=== PATIENT | male | born 2000 | race Caucasian/White ===

== ENCOUNTER → 2021-06-03 13:31 | Outpatient (BNVA) | payer OTHER, SELFPAY | PROVIDERS: Visit Provider Nurse Practitioner Family | DX: Z20.822 Contact with and (suspected) exposure to COVID-19 (principal) | CPT/HCPCS: 87635 ==

== ENCOUNTER 2022-09-03 20:45 | Emergency (ER) | payer OTHER, SELFPAY ==
--- NOTE | 2022-09-03 20:46 | XRR_ITS ---
PROCEDURE INFORMATION: Exam: XR Chest Exam date and time: 09/03/2022 8:54 PM Age: 22 years old Clinical indication: Shortness of breath; Patient HX: PT C/O SOB and is covid positive; Additional info: Thanks TECHNIQUE: Imaging protocol: Radiologic exam of the chest. Views: 1 view. COMPARISON: No relevant prior studies available. FINDINGS: Lungs: Lungs are clear bilaterally. Pleural spaces: No pleural effusion. No pneumothorax. Heart/Mediastinum: The cardiac silhouette and mediastinal contours are unremarkable. Bones/joints: Unremarkable for age. XR/XR chest 1V portable [id number] IMPRESSION: Negative chest radiograph.
--- NOTE | 2022-09-03 20:54 | ECG_ITS ---
[facility] Test Date: 2022-09-03 Pat Name: Han Kapoor Department: Room: Gender: Male Corporate Licensed Broker: : [id number] Requested By: Soniya Fry Order Number: [id number] Mik MD: Tommy Davis M.D. Measurements Intervals [place] Rate: 151 P: 0 [place]: 0 QRS: -19 QRSD: 109 T: 100 QT: 302 QTc: 479 Interpretive Statements ATRIAL FLUTTER/TACHYCARDIA WITH RAPID VENTRICULAR RESPONSE LEFT VENTRICULAR HYPERTROPHY AND ST-T CHANGE [VOLTAGE CRITERIA PLUS ST/T ABNORMALITY] CRITICAL TEST RESULT No previous ECG available for comparison Electronically Signed On 09-04-2022 21:58:10 CDT by Tommy Davis M.D. [id number]
--- NOTE | 2022-09-03 20:56 | ED_ITS ---
HPI - General Adult General: Chief complaint: Arrhythmia/Palpitations Stated complaint: Chest Pains Time Seen by Provider: 09/03/22 20:47 Source: patient and EMS Mode of arrival: EMS Limitations: no limitations History of Present Illness: 22-year-old male he does have COVID currently he states that he also uses medical THC he states he took a 50 mg gummy to after hours ago he states that over the last 30 minutes an hour he started to feel pale nauseous and he is tachycardic into the 160s he does have a heart rate in the 150s here no history of A-fib or SVT he denies any chest pain no fever no cough Associated symptoms: Reports nausea, palpitations and vomiting; Deny dyspnea, headache(s) or rash Review of Systems 2 Const: Denies: fever(s), chills, body aches or change in appetite Eyes: Denies: blurry vision or eye discomfort ENMT: Denies: throat pain or dental pain Card: Reports: palpitations Resp: Denies: dyspnea GI: Reports: nausea and vomiting : Denies: dysuria Musc: Denies: neck pain or back pain Skin/Breast: Denies: rash Neuro: Denies: headache(s) Psych: Denies: depression Hernan/Lymph: Denies: easy bruising All/Imm: Denies: urticaria PFSH ED PFSH: Medical History Hematochezia Surgical History History of adenoidectomy 2000 History of colonoscopy 07/2020 History of tonsillectomy 2002 Family History Other CAD (coronary artery disease) Cancer Dementia Diabetes Stroke Social History Smoking and tobacco status: never smoked Second hand smoke exposure: No Alcohol intake: current Alcohol intake frequency: few times a week Physical Exam Const: COMMON NORMALS: patient oriented x3 HENMT: COMMON NORMALS: normocephalic and atraumatic HEAD & SCALP: normocephalic and atraumatic Eye: COMMON NORMALS: Equal, round and reactive pupils present and EOMs intact bilaterally PUPIL: Yes Equal, round and reactive pupils present Neck/C-Spine: COMMON NORMALS: full ROM and supple Chest: COMMONS NORMALS: normal inspection of the chest and normal palpation of entire chest wall Resp: COMMON NORMALS: normal respiratory effort, No retractions, No use of accessory muscles and clear to auscultation bilaterally AUSCULTATION: clear to auscultation bilaterally Cardio: COMMON NORMALS: regular rhythm and No murmurs present (Cardio) RATE: tachycardic RHYTHM: regular rhythm GI: COMMON NORMALS: Normal to inspection, nondistended, normoactive bowel sounds present, Soft to palpation, non-tender and no masses PALPATION: Yes Soft to palpation Extremity: COMMON NORMALS: normal to inspection and full ROM Neuro: COMMON NORMALS: patient oriented x3, moves all extremities and no focal motor deficits Psych: COMMON NORMALS: mental status grossly normal, Normal thought process present and cooperative THOUGHT PROCESS: Normal thought process present Skin: COMMON NORMALS: no rashes or lesions noted and no wounds GENERAL SKIN EXAM: no rashes or lesions noted Course Vital Signs: Vital signs: Vital Signs Temperature 97.8 F 09/03/22 20:58 Pulse Rate 94 09/04/22 00:18 Respiratory Rate 12 09/04/22 00:18 Blood Pressure 98/53 09/04/22 00:18 Pulse Oximetry 95 09/04/22 00:18 Oxygen Delivery Me thod 09/04/22 00:18 [facility] - General Adult Medical Decision Making Patient presents here with palpitations likely from his marijuana use his heart rate is improved here after Ativan and IV fluids he is observed for 5 hours and he is now awake and alert and ambulatory blood work was all normal including D- dimer EKG x-ray are normal no signs of pulmonary embolism he is stable for discharge he is follow-up his PCP and return if worsening. Lab Data 09/03/22 20:58 09/03/22 20:58 Radiology Impressions Chest X-Ray 09/03/22 20:46 IMPRESSION: Negative chest radiograph. Laboratory Results WBC 10.1 10^3/uL (4.0-10.0) H 09/03/22 20:58 RBC 5.23 10^6/uL (4.1-5.3) 09/03/22 20:58 Hgb 15.2 g/dL (11.7-16.6) 09/03/22 20:58 Hct 46.4 % (42.0-52.0) 09/03/22 20:58 MCV 88.7 fl (80-94) 09/03/22 20:58 MCH 29.1 pg (28.0-34.0) 09/03/22 20:58 MCHC 32.8 g/dL (30.0-36.0) 09/03/22 20:58 RDW 12.7 % (12.1-15.1) 09/03/22 20:58 Plt Count 322 10^3/cmm (130-400) 09/03/22 20:58 MPV 8.7 fL (7.4-10.4) 09/03/22 20:58 Neut % (Auto) 35.9 % 09/03/22 20:58 Lymph % (Auto) 41.7 % 09/03/22 20:58 [place] % (Auto) 18.3 % 09/03/22 20:58 Eos % (Auto) 2.7 % 09/03/22 20:58 Baso % (Auto) 0.8 % 09/03/22 20:58 Neut # (Auto) 3.65 10^3/uL (1.8-7.7) 09/03/22 20:58 Lymph # (Auto) 4.2 10^3/uL (0.8-4.8) 09/03/22 20:58 [place] # (Auto) 1.9 10^3/uL (0.2-0.9) H 09/03/22 20:58 Eos # (Auto) 0.3 10^3/uL (0.0-0.8) 09/03/22 20:58 Baso # (Auto) 0.1 10^3/uL (0.0-0.1) 09/03/22 20:58 Nucleated RBC % (auto) 0 % 09/03/22 20:58 Nucleated RBCs # 0.0 /100WBC 09/03/22 20:58 D-Dimer <= 0.27 ug/mIFEU (0-0.59) 09/03/22 20:58 Sodium 140 mmol/L (136-145) 09/03/22 20:58 Potassium 3.0 mmol/L (3.5-5.1) L 09/03/22 20:58 Chloride 104 mmol/L (98-107) 09/03/22 20:58 Carbon Dioxide 22 mmol/L (22-29) 09/03/22 20:58 Anion Gap 17.0 (5-19) 09/03/22 20:58 BUN 8 mg/dL (6-20) 09/03/22 20:58 Creatinine 0.7 mg/dL (0.7-1.2) 09/03/22 20:58 GFR Calculation 141.0 mL/min (90-130) H 09/03/22 20:58 Glucose 131 mg/dL (65-115) H 09/03/22 20:58 Calculated Osmolality 290 mOsm/kg (285-295) 09/03/22 20:58 Calcium 9.1 mg/dL (8.5-10.5) 09/03/22 20:58 Total Bilirubin 0.3 mg/dL (0.15-1.2) 09/03/22 20:58 AST 19 U/L (0-40) 09/03/22 20:58 ALT 31 U/L (0-41) 09/03/22 20:58 Alkaline Phosphatase 68 U/L (40-130) 09/03/22 20:58 Total Protein 7.9 g/dL (6.6-8.7) 09/03/22 20:58 Albumin 4.7 g/dL (3.5-5.2) 09/03/22 20:58 Globulin 3.2 g/dL (1.3-4.6) 09/03/22 20:58 Lipase 25 U/L (13-60) 09/03/22 20:58 Salicylates < 0.3 mg/dL (3-10) L 09/03/22 20:58 Urine Opiates Screen Negative ng/mL (Negative) 09/03/22 23:05 Acetaminophen < 5.0 ug/mL (10-30) L 09/03/22 20:58 Ur Barbiturates Screen Negative ng/mL (Negative) 09/03/22 23:05 Ur Phencyclidine Scrn Negative ng/mL (Negative) 09/03/22 23:05 Ur Amphetamines Screen Negative ng/mL (Negative) 09/03/22 23:05 U Benzodiazepines Scrn Negative ng/mL (Negative) 04/08/23 23:05 Urine Cocaine Screen Negative ng/mL (Negative) 09/03/22 23:05 U Marijuana (THC) Screen Positive ng/mL (Negative) H 09/03/22 23:05 Ethyl Alcohol < 10 mg/dL (0-10) 09/03/22 20:58 EKG Data EKG 1: I personally reviewed and interpreted this EKG as follows: EKG interpretation date: 09/03/22 EKG interpretation time: 20:54 Interpretation: sinus tach hr [address] or t wave abnormalities qrs 109 qtc 388 Computer generated interpretation: Chest X-Ray 09/03/22 20:46 IMPRESSION: Negative chest radiograph. Critical Care Time Critical Care Time: Critical Care Time: No Discharge Plan Discharge Patient Disposition: Home Clinical Impression: Sinus tachycardia, Vomiting, Marijuana use Condition: Stable Prescriptions: New ondansetron 4 mg tablet,disintegrating 4 mg PO Q6H PRN (Reason: nausea and vomiting) Qty: 14 0RF Discharge Orders: Discharge ED (Routine); Ordered 09/04/22 Ordered By: Soniya Fry Discharge Diet: Advance as tolerated Discharge Activity: Resume usual activity Patient Instructions: Marijuana Abuse, Tachycardia (ED) Coding Level of Care Code ED Enterprise Application Developer for Catalina Ogden
[2022-09-03 20:58] VITALS: BP 147/94; PULSE 150; RESP 25; TEMP 36.6; O2SAT 100
--- NOTE | 2022-09-03 21:00 | PC.NURSE ---
Pt vomited large amount undigested food. Assisted pt into wheelchair at bedside, dirty pants removed, bed linens changed. Assisted pt back to bed, zofran given. Pt's mother at bedside. Pt on bedside monitor technician.
[2022-09-03] MEDS: sodium chloride 0.9% 1,000 ML 999 ML IV ×2 (21:01→21:54)
[2022-09-03] MEDS: LORazepam 2 mg/mL INJ 1 mL IVP (21:02)
[2022-09-03 21:08] LABS: Basophils # 0.1 10^3/uL (0.0-0.1); Basophils % 0.8 %; Eosinophils # 0.3 10^3/uL (0.0-0.8); Eosinophils % 2.7 %; Hematocrit 46.4 % (42.0-52.0); Hemoglobin 15.2 g/dL (11.7-16.6); Lymphocytes # 4.2 10^3/uL (0.8-4.8); Lymphocytes % 41.7 %; Mean Corpuscular HGB Conc 32.8 g/dL (30.0-36.0); Mean Corpuscular Hemoglobin 29.1 pg (28.0-34.0); Mean Corpuscular Volume 88.7 fl (80-94); Mean Platelet Volume 8.7 fL (7.4-10.4); Monocytes # 1.9 10^3/uL (0.2-0.9); Monocytes % 18.3 %; Neutrophils # 3.65 10^3/uL (1.8-7.7); Neutrophils % 35.9 %; Nucleated Red Blood Cells % 0 %; Platelet Count 322 10^3/cmm (130-400); Red Blood Count 5.23 10^6/uL (4.1-5.3); Red Cell Distribution Width 12.7 % (12.1-15.1); White Blood Count 10.1 10^3/uL (4.0-10.0)
[2022-09-03] MEDS: ondansetron 2 mg/ML SDV 2 mL 4 MG IVP (21:09)
[2022-09-03 21:15] VITALS: BP 126/78; PULSE 128; RESP 15; O2SAT 97
[2022-09-03 21:18] LABS: D Dimer <= 0.27 ug/mIFEU (0-0.59)
[2022-09-03 21:22] LABS: Alanine Aminotransferase 31 U/L (0-41); Albumin Level 4.7 g/dL (3.5-5.2); Alkaline Phosphatase 68 U/L (40-130); Aspartate Amino Transferase 19 U/L (0-40); Blood Urea Nitrogen 8 mg/dL (6-20); Calcium 9.1 mg/dL (8.5-10.5); Carbon Dioxide 22 mmol/L (22-29); Chloride 104 mmol/L (98-107); Globulin 3.2 g/dL (1.3-4.6); Glucose 131 mg/dL (65-115); Osmolality Calculated 290 mOsm/kg (285-295); Sodium 140 mmol/L (136-145); Total Bilirubin 0.3 mg/dL (0.15-1.2); Total Protein 7.9 g/dL (6.6-8.7)
[2022-09-03 21:40] LABS: Acetaminophen < 5.0 ug/mL (10-30); Alcohol Level < 10 mg/dL (0-10); Salicylate < 0.3 mg/dL (3-10)
[2022-09-03 21:57] VITALS: BP 109/61; PULSE 109; RESP 12; O2SAT 100
[2022-09-03] MEDS: lidocaine 1% 5 ML in potassium chloride premix 100 ML 26.25 ML IV (22:12)
[2022-09-03 22:22] LABS: Lipase 25 U/L (13-60)
[2022-09-03 22:36] VITALS: BP 114/71; PULSE 107; RESP 12; O2SAT 100
[2022-09-03 23:09] VITALS: BP 144/92; PULSE 116; RESP 12; O2SAT 100
[2022-09-03 23:21] LABS: Amphetamines Screen Urine Negative (Negative); Barbiturates Screen Urine Negative (Negative); Benzodiazepines Screen Urine Negative (Negative); Cocaine Screen Urine Negative (Negative); Opiate Screen Urine Negative (Negative); PCP Screen Urine Negative (Negative); THC Screen Urine Positive (Negative)
[2022-09-04 00:18] VITALS: BP 98/53; PULSE 94; RESP 12; O2SAT 95
[2022-09-04 01:15] VITALS: BP 92/49; PULSE 90; RESP 16; O2SAT 95
[2022-09-04 01:30] VITALS: BP 102/66; PULSE 106; RESP 15; O2SAT 96
[2022-09-04 01:45] VITALS: BP 101/68; PULSE 104; RESP 14; O2SAT 96
[2022-09-04 02:00] VITALS: BP 114/63; PULSE 104; RESP 14; O2SAT 95
--- NOTE | 2022-09-08 14:46 | DCPLANNER ---
automotive services manager called patient due to no primary care physician - patient stated that he sees someone at [facility].
== END 2022-09-04 02:16 | disposition home or self-care (01) ==
PROVIDERS: Emergency Provider Emergency Medicine
DX: R00.0 Tachycardia, unspecified (principal); R11.11 Vomiting without nausea; F12.90 Cannabis use, unspecified, uncomplicated
CPT/HCPCS: 71045; 80053; 80306; 80307; 83690; 85025; 85378; 93005; 96365; 96366; 96375; 99285; J2060; J2405; J3480; J7030